=== PATIENT | female | born 1990 ===

== ENCOUNTER 2016-07-13 12:15 | Emergency (ER) | payer OTHER ==
[2016-07-13 12:34] VITALS: BMI 38.4
[2016-07-13 12:37] VITALS: TEMP 98.6; O2SAT 100
--- NOTE | 2016-07-13 12:45 | ED PDOC ---
Arrival/HPI - General Chief Complaint: ENT Problem Time Seen by Provider: 07/13/16 12:39 Historian: Patient - History of Present Illness Narrative History of Present Illness (Text): 07/13/16 12:41 25 y/o female, no significant pmh, nkda, c/o throat pain x 2 days. Pt. stated that she had throat pain 2 weeks ago, completed 10 day course of amoxicillin, started to have pain again yesterday, eating and drinking well, no painful swallowing, no coughing, no fever or chills, no dizziness, no numbness or tingling, no palpitation, no rash, no other medical or psychological complaints. Past Medical History - Provider Review Nursing Documentation Reviewed: Yes - Infectious Disease Hx of Infectious Diseases: None - Tetanus Immunization Tetanus Immunization: Unknown - Past Medical History Past Medical History: No Previous - Psychiatric Hx Psychophysiologic Disorder: No Hx Anxiety: No Hx Bipolar Disorder: No Hx Depression: No Hx Emotional Abuse: No Hx Hallucinations: No Hx Panic Disorder: No Hx Post Traumatic Stress Disorder: No Hx Psychosis: No Hx Physical Abuse: No Hx Schizophrenia: No Hx Sexual Abuse: No Hx Substance Use: No - Past Surgical History Past Surgical History: No Previous - Surgical History Hx Section: Yes - Anesthesia Hx Anesthesia: No Hx Anesthesia Reactions: No Hx Malignant Hyperthermia: No - Suicidal Assessment Feels Threatened In Home Enviroment: No Family/Social History - Physician Review Nursing Documentation Reviewed: Yes Family/Social History: Unknown Family HX Smoking Status: Never Smoked Hx Alcohol Use: No Hx Substance Use: No Hx Substance Use Treatment: No Allergies/Home Meds Allergies/Adverse Reactions: Allergies No Known Allergies Allergy (Verified 05/15/16 09:32) Review of Systems - Review of Systems Constitutional: absent: Fatigue, Fevers Eyes: absent: Vision Changes ENT: Sore Throat. absent: Hearing Changes Respiratory: absent: Cough, Sputum Cardiovascular: absent: Chest Pain, Orthopnea, Syncope Gastrointestinal: absent: Abdominal Pain, Nausea, Vomiting Skin: absent: Rash, Pruritis, Skin Lesions Neurological: absent: Headache, Dizziness Physical Exam Vital Signs Reviewed: Yes Vital Signs Temp Pulse Resp Pulse Ox 07/13/16 12:16 98.6 F 65 18 100 Temperature: Afebrile Pulse: Regular Respiratory Rate: Normal Appearance: Positive for: Well-Appearing, Non-Toxic, Comfortable Pain Distress: Mild Mental Status: Positive for: Alert and Oriented X 3 - Systems Exam Head: Present: Atraumatic, Normocephalic Pupils: Present: PERRL Extroacular Muscles: Present: EOMI Conjunctiva: Present: Normal Ears: Present: NORMAL TM, Normal Canal. No: Erythema Mouth: Present: Moist Mucous Membranes Pharnyx: No: ERYTHEMA, EXUDATE, TONSILS ENLARGED, Uvular Deviation, Muffled/ Hoarse Voice, Strider, Soft Palate/Uvular Edema Nose (External): Present: Atraumatic. No: Abrasion, Contusion, Laceration Nose (Internal): Present: Normal Inspection, No Active Bleeding. No: Rhinorrhea Neck: Present: Normal Range of Motion Respiratory/Chest: Present: Clear to Auscultation, Good Air Exchange. No: Respiratory Distress, Accessory Muscle Use Cardiovascular: Present: Regular Rate and Rhythm, Normal S1, S2. No: Murmurs Abdomen: Present: Normal Bowel Sounds. No: Tenderness, Distention, Peritoneal Signs Back: Present: Normal Inspection Upper Extremity: Present: Normal Inspection. No: Cyanosis, Edema Lower Extremity: Present: Normal Inspection. No: Edema Neurological: Present: GCS=15, Speech Normal, Motor Func Grossly Intact, Gait Normal, Memory Normal Skin: Present: Warm, Dry, Normal Color. No: Rashes Lymphatic: No: Cervical Adenopathy Psychiatric: Present: Alert, Oriented x 3, Normal Insight, Normal Concentration Medical Decision Making ED Course and Treatment: 07/13/16 12:45 -rapid strep and throat culture 07/13/16 14:03 -strept negative. -Throat culture sent. -Pt. has no pain in the ER now. -Discharge home with education on take tylenol at home as needed, salt water gargling, soft food diet, stay hydrated, follow up with your own pmd and ENT within 2 days, return to the ER for any new or worsening signs or symptoms. - Lab Interpretations Lab Results: Lab Results 07/13/16 12:41: Grp A Beta Strep Ag Negative I have reviewed the lab results: Yes Interpretation: No clinic. lab abnormalty - PA / ORE CRUSHER / Resident Statement /DO has reviewed & agrees with the documentation as recorded. Disposition/Present on Arrival - Present on Arrival Any Indicators Present on Arrival: No History of DVT/PE: No History of Uncontrolled Diabetes: No Urinary Catheter: No History of Decub. Ulcer: No History Surgical Site Infection Following: None - Disposition Have Diagnosis and Disposition been Completed?: Yes Diagnosis: Throat pain in adult Disposition: HOME/ ROUTINE Disposition Time: 12:46 Patient Plan: Discharge Condition: GOOD Additional Instructions: Discharge home with education on take tylenol at home as needed, salt water gargling, soft food diet, stay hydrated, follow up with your own pmd and ENT within 2 days, return to the ER for any new or worsening signs or symptoms. Referrals: Starr Meredith DO [Primary Care Provider] - Follow up with primary Bakari Recinos DO [Staff Provider] - Follow up with primary Forms: WORK NOTE
[2016-07-13 14:12] VITALS: BP 117/76; PULSE 61; RESP 16
== END 2016-07-13 14:11 | disposition home or self-care (01) ==
LOC: ED 12:15
DX: R07.0 Pain in throat (principal)

== ENCOUNTER 2016-11-05 11:30 | Emergency (ER) | payer OTHER ==
[2016-11-05 11:30] VITALS: BMI 38.4
[2016-11-05 12:02] VITALS: RESP 18; TEMP 99.1
--- NOTE | 2016-11-05 12:17 | ED PDOC ---
Arrival/HPI - General Chief Complaint: Headache Time Seen by Provider: 11/05/16 12:06 Historian: Patient - History of Present Illness Narrative History of Present Illness (Text): 11/05/16 12:06 Marty Bartholomew is a 25 year old female who presents to the emergency department complaining of a half day duration of a frontal headache accompanied by some nausea. Patient states that she has had headaches like this in the past and feels similar in quality to previous headaches. Patient notes that her headache was not sudden in onset. Patient denies any vomiting, photophobia, neck pain, back pain, or any other complaints at this time. Time/Duration: Other (12 hours) Symptom Onset: Gradual Symptom Course: Unchanged Activities at Onset: Rest Context: Home Past Medical History - Provider Review Nursing Documentation Reviewed: Yes - Infectious Disease Hx of Infectious Diseases: None - Tetanus Immunization Tetanus Immunization: Unknown - Reproductive Menopause: No - Past Medical History Past Medical History: No Previous - Psychiatric Hx Psychophysiologic Disorder: No Hx Anxiety: No Hx Bipolar Disorder: No Hx Depression: No Hx Emotional Abuse: No Hx Hallucinations: No Hx Panic Disorder: No Hx Post Traumatic Stress Disorder: No Hx Psychosis: No Hx Physical Abuse: No Hx Schizophrenia: No Hx Sexual Abuse: No Hx Substance Use: No - Past Surgical History Past Surgical History: No Previous - Surgical History Hx Section: Yes - Anesthesia Hx Anesthesia: No Hx Anesthesia Reactions: No Hx Malignant Hyperthermia: No - Suicidal Assessment Feels Threatened In Home Enviroment: No Family/Social History - Physician Review Nursing Documentation Reviewed: Yes Family/Social History: No Known Family HX Smoking Status: Never Smoked Hx Alcohol Use: No Hx Substance Use: No Hx Substance Use Treatment: No Allergies/Home Meds Allergies/Adverse Reactions: Allergies No Known Allergies Allergy (Verified 05/15/16 09:32) Physical Exam - Physical Exam Narrative Physical Exam (Text): - Review of Systems Constitutional: Normal. absent: Fatigue, Weight Change, Fevers Eyes: Normal ENT: Normal Respiratory: Normal absent: SOB, Cough, Sputum Cardiovascular: Normal absent: Chest pain, Palpitations, Syncope Gastrointestinal: Nausea. absent: Abdominal pain, Diarrhea, Vomiting Genitourinary: Normal. absent: Dysuria, Frequency, Hematuria Musculoskeletal: Normal. absent: Arthralgias, Back Pain, Neck Pain Skin: Normal Neurological: Frontal headache. absent: Focal Weakness Endocrine: Normal Hemo/Lymphatic: Normal Psychiatric: Normal - Physical exam Patient appears age appropriate, speaking full sentences without difficulty. - Systems Exam Head: Present: Atraumatic, Normocephalic Pupils: Present: PERRL Extraocular Muscles: Present: EOMI Conjunctiva: Present: Normal Mouth: Present: Moist Mucous Membranes Neck: Present: Normal Range of Motion. No: MIDLINE TENDERNESS, Paraspinal Tenderness Respiratory/Chest: Present: Clear to Auscultation, Good Air Exchange. No: Respiratory Distress, Accessory Muscle Use, Tachypnic Cardiovascular: Present: Regular Rate and Rhythm, Normal S1, S2, Peripheral Pulses Present. No: Murmurs Abdomen: Present: Normal Bowel Sounds, No: Tenderness, Peritoneal Signs, Rebound, Guarding, Distention Back: Present: Normal Inspection. No: Midline Tenderness, Paraspinal Tenderness Upper Extremity: Present: Normal Inspection. No: Cyanosis, Edema Lower Extremity: Present: Normal Inspection. No: Edema Neurological: Present: GCS=15, Speech Normal, cranial nerves II through XII fully intact with no cerebellar abnormality, neuro-sensory fully intact. No focal neurological deficits. Skin: Present: Warm, Dry, Normal Color. No: Rashes Lymphatic: Present: OX3, NI, NC Psychiatric: Present: Alert, Oriented x 3, Normal Insight, Normal Concentration Vital Signs Reviewed: Yes Vital Signs Temp Pulse Resp BP Pulse Ox 11/05/16 13:22 75 18 123/86 99 11/05/16 11:57 99.1 F 78 18 131/64 100 Temperature: Afebrile Blood Pressure: Normal Pulse: Regular Respiratory Rate: Normal Appearance: Positive for: Well-Appearing, Non-Toxic, Comfortable Pain Distress: None Mental Status: Positive for: Alert and Oriented X 3 Medical Decision Making ED Course and Treatment: 11/05/16 12:06 Impression: 25 year old female complaining of a half day duration of a frontal headache accompanied by some nausea. Plan: -- Tylenol, Toradol, and IV fluids -- Reassess and disposition Prior Visits: Notes and results from previous visits were reviewed. Patient last seen in the ED on 07/13/16 for throat pain for 2 days. Patient was discharged home. Progress Notes: 11/05/16 13:50 on reevaluation, pt states she feels much better and would like to be dc'd home no focal neurological deficits on reeval states she feels comfortable being dc'd home with outpatient f/u Pt states she understands to return to the ER right away for new or worsening symptoms or for inability to f/u with PMD or specialist as instructed. Patient states that she fully agrees with and understands discharge instructions. States that she agrees with the plan and disposition. Verbalized and repeated discharge instructions and plan. I have given the patient opportunity to ask any additional questions. - Medication Orders Current Medication Orders: Discontinued Medications Acetaminophen (Tylenol 325mg Tab) 975 mg PO STAT STA Stop: 11/05/16 12:19 Last Admin: 11/05/16 12:28 Dose: 975 mg Sodium Chloride (Sodium Chloride 0.9%) 1,000 mls @ 999 mls/hr IV .Q1H1M STA Stop: 11/05/16 13:18 Last Admin: 11/05/16 12:28 Dose: 999 mls/hr Ketorolac Tromethamine (Toradol) 15 mg IVP STAT STA Stop: 11/05/16 12:19 Last Admin: 11/05/16 12:28 Dose: 15 mg - Scribe Statement The provider has reviewed the documentation as recorded by the Sudhakar Cross Provider Scribe Attestation: All medical record entries made by the Sudhakar were at my direction and personally dictated by me. I have reviewed the chart and agree that the record accurately reflects my personal performance of the history, physical exam, medical decision making, and the department course for this patient. I have also personally directed, reviewed, and agree with the discharge instructions and disposition. Disposition/Present on Arrival - Present on Arrival Any Indicators Present on Arrival: No History of DVT/PE: No History of Uncontrolled Diabetes: No Urinary Catheter: No History of Decub. Ulcer: No History Surgical Site Infection Following: None - Disposition Have Diagnosis and Disposition been Completed?: Yes Diagnosis: Headache Disposition: HOME/ ROUTINE Disposition Time: 13:54 Patient Plan: Discharge Condition: GOOD Discharge Instructions (ExitCare): General Headache (ED) Additional Instructions: PLEASE RETURN TO THE EMERGENCY DEPARTMENT FOR NEW OR WORSENING SYMPTOMS. RETURN RIGHT AWAY IF YOU CANNOT FOLLOW UP WITH YOUR PRIMARY CARE DOCTOR, CLINIC, OR SPECIALIST IN 1-2 DAYS. Please take [id number] Motrin or Tylenol for pain Referrals: Starr Meredith DO [Primary Care Provider] - Follow up with primary Forms: [facility] ([place]ian), WORK NOTE
[2016-11-05] MEDS ORDERED: Sodium Chloride 0.9% 1,000 ML IV STA (12:18)
[2016-11-05 13:22] VITALS: BP 123/86; PULSE 75; O2SAT 99
== END 2016-11-05 14:02 | disposition home or self-care (01) ==
LOC: ED 11:30
DX: R51 Headache (principal)
CPT/HCPCS: 96361; 96374; 99285; J1885; J7040

== ENCOUNTER 2017-02-06 21:09 | Emergency (ER) | payer SELFPAY ==
[2017-02-06 21:10] VITALS: BMI 38.4
--- NOTE | 2017-02-06 21:44 | ED PDOC ---
Arrival/HPI <Chapo Cueva - Last Filed: 02/06/17 21:47> - General Historian: Patient - History of Present Illness Time/Duration: Other (2 weeks) Context: Home <Fareed Grant - Last Filed: 02/06/17 23:58> - General Chief Complaint: Female Genitourinary Time Seen by Provider: 02/06/17 21:41 - History of Present Illness Narrative History of Present Illness (Text): 02/06/17 21:41 This 26 yo female presents to this ED requesting a test. Patient stated she missed her last menstrual period x 2 weeks ago. Patient feels mild nauseous. Denies pelvic pain, abdominal pain, sob, cp, rectal bleeding, hematuria, urinary symptoms, dizziness, or abnormal gait. (Fareed Grant) Past Medical History - Provider Review Nursing Documentation Reviewed: Yes - Infectious Disease Hx of Infectious Diseases: None - Tetanus Immunization Tetanus Immunization: Unknown - Past Medical History Past Medical History: No Previous - Cardiac Hx Cardiac Disorders: No - Pulmonary Hx Respiratory Disorders: No - Neurological Hx Neurological Disorder: Yes Hx Migraine: Yes - HEENT Hx HEENT Disorder: No - Endocrine/Metabolic Hx Endocrine Disorders: No - Hematological/Oncological Hx Blood Disorders: No - Integumentary Hx Dermatological Disorder: No - Musculoskeletal/Rheumatological Hx Musculoskeletal Disorders: No - Gastrointestinal Hx Gastrointestinal Disorders: No - Genitourinary/Gynecological Hx Genitourinary Disorders: No - Psychiatric Hx Psychophysiologic Disorder: No Hx Substance Use: No - Past Surgical History Past Surgical History: No Previous - Surgical History Hx Section: Yes - Anesthesia Hx Anesthesia: No Hx Anesthesia Reactions: No Hx Malignant Hyperthermia: No - Suicidal Assessment Feels Threatened In Home Enviroment: No <Fareed Grant - Last Filed: 02/06/17 23:58> Family/Social History - Physician Review Nursing Documentation Reviewed: Yes Family/Social History: Other (noncontributory) Smoking Status: Never Smoked Hx Alcohol Use: No Hx Substance Use: No Hx Substance Use Treatment: No <Fareed Grant - Last Filed: 02/06/17 23:58> Allergies/Home Meds <Chapo Cueva - Last Filed: 02/06/17 21:47> <Fareed Grant - Last Filed: 02/06/17 23:58> Allergies/Adverse Reactions: Allergies No Known Allergies Allergy (Verified 02/06/17 21:14) Home Medications: Home Meds Medication Instructions Recorded Confirmed No Known Home Med 02/06/17 02/06/17 Review of Systems - Review of Systems Constitutional: Normal. absent: Fatigue, Weight Change, Fevers, Night Sweats Eyes: Normal ENT: Normal Respiratory: Normal. absent: SOB, Cough Cardiovascular: Normal. absent: Chest Pain, Palpitations Gastrointestinal: Nausea. absent: Abdominal Pain, Vomiting Genitourinary Female: Normal. absent: Dysuria, Frequency, Hematuria, Vaginal Bleeding, Vaginal Discharge Musculoskeletal: Normal Skin: Normal Neurological: Normal Endocrine: Normal Hemo/Lymphatic: Normal Psychiatric: Normal <Grant,Nahim P - Last Filed: 02/06/17 23:58> Physical Exam Temperature: Afebrile Blood Pressure: Normal Pulse: Regular Respiratory Rate: Normal Appearance: Positive for: Well-Appearing, Non-Toxic, Comfortable Pain Distress: None Mental Status: Positive for: Alert and Oriented X 3 - Systems Exam Head: Present: Atraumatic, Normocephalic Pupils: Present: PERRL Extroacular Muscles: Present: EOMI Conjunctiva: Present: Normal Mouth: Present: Moist Mucous Membranes Neck: Present: Normal Range of Motion Respiratory/Chest: Present: Clear to Auscultation, Good Air Exchange. No: Respiratory Distress, Accessory Muscle Use Cardiovascular: Present: Regular Rate and Rhythm, Normal S1, S2. No: Murmurs Abdomen: Present: Normal Bowel Sounds. No: Tenderness, Distention, Peritoneal Signs, Rebound, Guarding Back: Present: Normal Inspection Upper Extremity: Present: Normal Inspection, Normal ROM, NORMAL PULSES, Neurovascularly Intact, Capillary Refill < 2s. No: Cyanosis, Edema Lower Extremity: Present: Normal Inspection. No: Edema Neurological: Present: GCS=15, CN II-XII Intact, Speech Normal, Normal Sensory Function, Normal Cerebellar Funct, Gait Normal, Memory Normal Skin: Present: Warm, Dry, Normal Color. No: Rashes Psychiatric: Present: Alert, Oriented x 3, Normal Insight, Normal Concentration <Grant,Nahim P - Last Filed: 02/06/17 23:58> Vital Signs Temp Pulse Resp BP Pulse Ox 02/06/17 21:14 98.6 F 95 H 16 129/85 95 Medical Decision Making <HammadChapo - Last Filed: 02/06/17 21:47> Re-evaluation Time: 23:56 Reassessment Condition: Re-examined, Improved <Fareed Grant - Last Filed: 02/06/17 23:58> ED Course and Treatment: 02/06/17 23:56 Re-evaluation. Patient feels better. Discussed results and plan with patient who expresses understanding. All questions answered and there is agreement with the plan to discharge home with instructions. Patient stable for discharge. Return if symptoms persist or worsen. (Fareed Grant) - Lab Interpretations Lab Results: Lab Results 02/06/17 22:25: Urine Color Yellow, Urine Appearance Clear, Urine pH 6.0, Ur Specific [place] 1.025, Urine Protein Negative, Urine Glucose (UA) Negative, Urine Ketones Negative, Urine Blood Trace-intact H, Urine Nitrate Negative, Urine Bilirubin Negative, Urine Urobilinogen 0.2, Ur Leukocyte Esterase Negative , Urine RBC 1 - 3, Urine WBC 0 - 2, Ur Epithelial Cells 3 - 4, Urine Bacteria Few, Urine HCG, Qual Negative - PA / DYE MAKER / Resident Statement / has reviewed & agrees with the documentation as recorded. / has examined the patient and agrees with the treatment plan. <HammadChapo - Last Filed: 02/06/17 21:47> Disposition/Present on Arrival <HammadChapo - Last Filed: 02/06/17 21:47> - Present on Arrival Any Indicators Present on Arrival: No History of DVT/PE: No History of Uncontrolled Diabetes: No Urinary Catheter: No History of Decub. Ulcer: No History Surgical Site Infection Following: None - Disposition Have Diagnosis and Disposition been Completed?: Yes Disposition Time: 23:56 Patient Plan: Discharge <Fareed Grant - Last Filed: 02/06/17 23:58> - Disposition Diagnosis: Irregular menses Disposition: HOME/ ROUTINE Condition: GOOD Discharge Instructions (ExitCare): Dysmenorrhea (ED) Additional Instructions: Call private ERECTOR OPERATOR doctor for follow up visit in 1-2 days. Return to emergency if you develop any symptoms. Referrals: Starr Meredith DO [Primary Care Provider] - Follow up with primary [facility] [Outside] - Follow [facility] with [facility] [Outside] - Follow up with primary Forms: [facility] (Irish), WORK NOTE
[2017-02-06 22:42] LABS: URINE BILIRUBIN NEGATIVE (NEGATIVE); URINE BLOOD TRACE-INTACT (NEGATIVE); URINE GLUCOSE (UA) NEGATIVE (NEGATIVE); URINE KETONE NEGATIVE (NEGATIVE); URINE LEUKOCYTE ESTERASE NEGATIVE Leu/uL (NEGATIVE); URINE PROTEIN NEGATIVE mg/dL (<30 mg/dL); URINE UROBILINOGEN 0.2 E.U./dL (<1 E.U./dL)
[2017-02-06 22:48] LABS: URINE APPEARANCE CLEAR (CLEAR); URINE COLOR YELLOW (YELLOW)
[2017-02-06 23:05] LABS: URINE WBC 0 - 2 /hpf (0-6)
[2017-02-06 23:06] LABS: URINE BACTERIA FEW (NEG)
[2017-02-07] VITALS: BP 127/91; PULSE 92; RESP 18; TEMP 98.1; O2SAT 99
== END 2017-02-07 00:02 | disposition home or self-care (01) ==
LOC: ED 21:09
DX: N92.6 Irregular menstruation, unspecified (principal)

== ENCOUNTER 2017-08-17 21:28 | Emergency (ER) | payer SELFPAY ==
[2017-08-17 21:29] VITALS: BMI 38.4
--- NOTE | 2017-08-17 22:15 | ED PDOC ---
Arrival/HPI - General Time Seen by Provider: 08/17/17 21:31 Historian: Patient - History of Present Illness Narrative History of Present Illness (Text): 08/17/17 22:10 26 year old female, whose past medical history includes migraine headaches, presents to the emergency department complaining of headache discomfort associated with some nausea. Patient describes the discomfort as a throbbing sensation to the front of the head consistent with pervious migraine. Patient states she took Excedrin earlier with no relief. Patient denies any head trauma , any fever, chills, chest pain, shortness of breath, nausea, vomiting, diarrhea , urinary symptoms, back pain, neck pain, dizziness, or any other complaints. Symptom Onset: Gradual Symptom Course: Unchanged Activities at Onset: Light Context: Home Past Medical History - Provider Review Nursing Documentation Reviewed: Yes - Infectious Disease Hx of Infectious Diseases: None - Tetanus Immunization Tetanus Immunization: Unknown - Past Medical History Past Medical History: No Previous - Cardiac Hx Cardiac Disorders: No - Pulmonary Hx Respiratory Disorders: No - Neurological Hx Neurological Disorder: Yes Hx Migraine: Yes - HEENT Hx HEENT Disorder: No - Endocrine/Metabolic Hx Endocrine Disorders: No - Hematological/Oncological Hx Blood Disorders: No - Integumentary Hx Dermatological Disorder: No - Musculoskeletal/Rheumatological Hx Musculoskeletal Disorders: No - Gastrointestinal Hx Gastrointestinal Disorders: No - Genitourinary/Gynecological Hx Genitourinary Disorders: No - Psychiatric Hx Psychophysiologic Disorder: No Hx Substance Use: No - Past Surgical History Past Surgical History: No Previous - Surgical History Hx Section: Yes (1) - Anesthesia Hx Anesthesia: No Hx Anesthesia Reactions: No Hx Malignant Hyperthermia: No - Suicidal Assessment Feels Threatened In Home Enviroment: No Family/Social History - Physician Review Nursing Documentation Reviewed: Yes Family/Social History: No Known Family HX Smoking Status: Never Smoked Hx Alcohol Use: No Hx Substance Use: No Hx Substance Use Treatment: No Allergies/Home Meds Allergies/Adverse Reactions: Allergies No Known Allergies Allergy (Verified 02/06/17 21:14) Review of Systems - Physician Review All systems were reviewed & negative as marked: Yes - Review of Systems Constitutional: absent: Fevers, Other (Chills) Respiratory: absent: SOB Cardiovascular: absent: Chest Pain Gastrointestinal: Nausea. absent: Diarrhea, Vomiting Genitourinary Female: absent: Dysuria, Frequency, Hematuria Musculoskeletal: absent: Back Pain, Neck Pain Neurological: Headache. absent: Dizziness Physical Exam Vital Signs Reviewed: Yes Vital Signs Resp BP Pulse Ox 08/17/17 22:03 20 143/83 98 Temperature: Afebrile Blood Pressure: Normal Pulse: Regular Respiratory Rate: Normal Appearance: Positive for: Well-Appearing, Non-Toxic, Comfortable Pain Distress: None Mental Status: Positive for: Alert and Oriented X 3 - Systems Exam Head: Present: Atraumatic, Normocephalic Pupils: Present: PERRL Extroacular Muscles: Present: EOMI Conjunctiva: Present: Normal Mouth: Present: Moist Mucous Membranes Neck: Present: Normal Range of Motion Respiratory/Chest: Present: Clear to Auscultation, Good Air Exchange. No: Respiratory Distress, Accessory Muscle Use Cardiovascular: Present: Regular Rate and Rhythm, Normal S1, S2. No: Murmurs Abdomen: No: Tenderness, Distention, Peritoneal Signs Back: Present: Normal Inspection Upper Extremity: Present: Normal Inspection. No: Cyanosis, Edema Lower Extremity: Present: Normal Inspection. No: Edema Neurological: Present: GCS=15, CN II-XII Intact, Speech Normal Skin: Present: Warm, Dry, Normal Color. No: Rashes Psychiatric: Present: Alert, Oriented x 3, Normal Insight, Normal Concentration Medical Decision Making ED Course and Treatment: 08/17/17 22:11 Impression: 26 year old female presents complaining of migraine headache associated with nausea. Plan: -- Benadryl, Reglan, IV Fluids -- Reassess and disposition Prior Visits: Notes and results from previous visits were reviewed. Patient was last seen in the emergency department on 11/05/16 presents complaining of frontal headache for half the day. Patient was discharged. Progress Notes: 08/18/17 00:11 On re-evaluation, patient feels better and is in no acute distress. I have discussed the results and plan with the patient, who expresses understanding. Patient in agreement with plan to be discharged home. Patient is stable for discharge. Patient was instructed to follow up with physician or return if symptoms worsen or new concerning symptoms arise. - Medication Orders Current Medication Orders: Sodium Chloride (Sodium Chloride 0.9%) 1,000 mls @ 100 mls/hr IV .Q10H KATE Last Admin: 08/17/17 22:42 Dose: 100 mls/hr eMAR Start Stop Document 08/17/17 22:42 SS (Rec: 08/17/17 22:42 SS [id number]) Intravenous Solution Start Date 08/17/17 Start Time 22:42 Discontinued Medications Diphenhydramine HCl (Benadryl) 25 mg IVP ONCE ONE Stop: 08/17/17 22:19 Last Admin: 08/17/17 22:41 Dose: 25 mg IVP Administration Document 08/17/17 22:41 SS (Rec: 08/17/17 22:41 SS [id number]) Charges for Administration # of IVP Administrations 1 Metoclopramide HCl (Reglan) 10 mg IVP ONCE ONE Stop: 08/17/17 22:19 Last Admin: 08/17/17 22:41 Dose: 10 mg IVP Administration Document 08/17/17 22:41 SS (Rec: 08/17/17 22:42 SS [id number]) Charges for Administration # of IVP Administrations 1 - Scribe Statement The provider has reviewed the documentation as recorded by the Sudhakar John Provider Scribe Attestation: All medical record entries made by the Sudhakar were at my direction and personally dictated by me. I have reviewed the chart and agree that the record accurately reflects my personal performance of the history, physical exam, medical decision making, and the department course for this patient. I have also personally directed, reviewed, and agree with the discharge instructions and disposition. Disposition/Present on Arrival - Present on Arrival Any Indicators Present on Arrival: No History of DVT/PE: No History of Uncontrolled Diabetes: No Urinary Catheter: No History of Decub. Ulcer: No History Surgical Site Infection Following: None - Disposition Have Diagnosis and Disposition been Completed?: Yes Diagnosis: Migraine headache Disposition: HOME/ ROUTINE Disposition Time: 00:10 Patient Plan: Discharge Patient Problems: Current Active Problems Problem Status Onset Migraine headache Acute Condition: GOOD Discharge Instructions (ExitCare): Migraine Headache (DC) Additional Instructions: Rest/take meds as prescribed/follow up with your doctor this week Prescriptions: Acetaminophen/Butalbital/Caf [Fioricet] 1 tab PO Q6 PRN #16 tab PRN Reason: Headache
[2017-08-17] MEDS ORDERED: DiphenhydrAMINE 50 mg/ml Inj IVP ONE (22:18)
[2017-08-17] MEDS ORDERED: Sodium Chloride 0.9% 1,000 ML IV SCH (22:30)
[2017-08-18 00:22] VITALS: BP 138/80; PULSE 96; RESP 18; TEMP 98.8
[2017-08-18 00:24] VITALS: O2SAT 99
== END 2017-08-18 00:22 | disposition home or self-care (01) ==
LOC: ED 21:28
DX: G43.909 Migraine, unspecified, not intractable, without status migrainosus (principal)
CPT/HCPCS: 96374; 96375; 99285; J1200; J2765; J7040

== ENCOUNTER 2017-11-01 15:09 | Emergency (ER) | payer MEDICAID ==
[2017-11-01 15:44] VITALS: BMI 41.1
[2017-11-01] MEDS ORDERED: Sodium Chloride 0.9% 1,000 ML IV STA (16:02)
[2017-11-01] MEDS ORDERED: DiphenhydrAMINE 50 mg/ml Inj IVP STA (16:03)
--- NOTE | 2017-11-01 17:59 | ED PDOC ---
Arrival/HPI - General Chief Complaint: Headache Time Seen by Provider: 11/01/17 15:45 Historian: Patient - History of Present Illness Narrative History of Present Illness (Text): 11/01/17 17:52 26yo female with pmhx of Migraine headache who presents with complaint of severe frontal headache with associated nausea and photophobia since this morning. she reports history of similar quality and intensity of headache in the past. States she took Excedrin today without relieve. She otherwise denies neck pain, nuchal ridgity, fever, rash, focal weakness, slurred speech, any other complaint. Past Medical History - Provider Review Nursing Documentation Reviewed: Yes - Infectious Disease Hx of Infectious Diseases: None - Tetanus Immunization Tetanus Immunization: Unknown - Past Medical History Past Medical History: No Previous - Cardiac Hx Cardiac Disorders: No - Pulmonary Hx Respiratory Disorders: No - Neurological Hx Neurological Disorder: Yes Hx Migraine: Yes - HEENT Hx HEENT Disorder: No - Endocrine/Metabolic Hx Endocrine Disorders: No - Hematological/Oncological Hx Blood Disorders: No - Integumentary Hx Dermatological Disorder: No - Musculoskeletal/Rheumatological Hx Musculoskeletal Disorders: No - Gastrointestinal Hx Gastrointestinal Disorders: No - Genitourinary/Gynecological Hx Genitourinary Disorders: No - Psychiatric Hx Psychophysiologic Disorder: No Hx Substance Use: No - Past Surgical History Past Surgical History: No Previous - Surgical History Hx Section: Yes (1) - Anesthesia Hx Anesthesia: No Hx Anesthesia Reactions: No Hx Malignant Hyperthermia: No - Suicidal Assessment Feels Threatened In Home Enviroment: No Family/Social History - Physician Review Nursing Documentation Reviewed: Yes Family/Social History: Unknown Family HX Smoking Status: Never Smoked Hx Alcohol Use: No Hx Substance Use: No Hx Substance Use Treatment: No Allergies/Home Meds Allergies/Adverse Reactions: Allergies No Known Allergies Allergy (Verified 11/01/17 15:44) Home Medications: Home Meds Medication Instructions Recorded Confirmed Aspirin/Acetaminophen/Caffeine 1 each PO PRN PRN 11/01/17 11/01/17 [Excedrin Extra Strength Caplet] Review of Systems - Physician Review All systems were reviewed & negative as marked: Yes - Review of Systems Constitutional: Normal Eyes: Photophobia ENT: Normal Respiratory: Normal Cardiovascular: Normal Gastrointestinal: Nausea. absent: Abdominal Pain Genitourinary Female: Normal Musculoskeletal: Normal Skin: Normal Neurological: Headache Endocrine: Normal Hemo/Lymphatic: Normal Psychiatric: Normal Physical Exam Vital Signs Reviewed: Yes Vital Signs Temp Pulse Resp BP Pulse Ox 11/01/17 18:20 98.6 F 78 20 118/78 100 11/01/17 17:09 98.8 F 78 18 120/84 100 11/01/17 15:40 98.8 F 80 18 126/84 98 Temperature: Afebrile Blood Pressure: Normal Pulse: Regular Respiratory Rate: Normal Appearance: Positive for: Well-Appearing, Non-Toxic, Comfortable Pain Distress: None Mental Status: Positive for: Alert and Oriented X 3 - Systems Exam Head: Present: Atraumatic, Normocephalic Pupils: Present: PERRL Extroacular Muscles: Present: EOMI Conjunctiva: Present: Normal Mouth: Present: Moist Mucous Membranes Neck: Present: Normal Range of Motion Respiratory/Chest: Present: Clear to Auscultation, Good Air Exchange. No: Respiratory Distress, Accessory Muscle Use Cardiovascular: Present: Regular Rate and Rhythm, Normal S1, S2. No: Murmurs Abdomen: No: Tenderness, Distention, Peritoneal Signs Back: Present: Normal Inspection Upper Extremity: Present: Normal Inspection. No: Cyanosis, Edema Lower Extremity: Present: Normal Inspection. No: Edema Neurological: Present: GCS=15, CN II-XII Intact, Speech Normal, Motor Func Grossly Intact, Normal Sensory Function, Normal Cerebellar Funct, Norm Deep Tendon Reflexes, Gait Normal, Memory Normal, Normal 2Pt Descrimination, Other ( No focal neurological deficit]) Skin: Present: Warm, Dry, Normal Color. No: Rashes Psychiatric: Present: Alert, Oriented x 3, Normal Insight, Normal Concentration Medical Decision Making ED Course and Treatment: 11/02/17 01:01 PT presented for stated history. she was neurologically intact. Neck was supple. she had no meningeal signs. she was treated in ED with Tylenol, Reglan and Benadryl On r evaluation she noted that her headache resolved. she was DC home with Fioricet. Referred to her PMD. - Medication Orders Current Medication Orders: Discontinued Medications Acetaminophen (Tylenol 325mg Tab) 650 mg PO STAT STA Stop: 11/01/17 16:03 Last Admin: 11/01/17 16:49 Dose: 650 mg MAR Pain/Vitals Document 11/01/17 16:49 [place] (Rec: 11/01/17 16:50 [place] [id number]) Pain Reassessment Is This A Pain ReAssessment? No Sleep Is patient sleeping during reassessment? No Presence of Pain Presence of Pain Yes Pain Scale Used Pain Scale Used Numeric Location Pain Location Body Formstone Fitter Description Constant Intensity 8 Scale Used Numeric Pain Behavior Guarding Facial Grimacing Re-Assess: ROXANE Pain/Vitals Document 11/01/17 17:49 [place] (Rec: 11/01/17 23:26 [place] [id number]) Pain Reassessment Is This A Pain ReAssessment? Yes Sleep Is patient sleeping during reassessment? Yes Diphenhydramine HCl (Benadryl) 25 mg IVP STAT STA Stop: 11/01/17 16:04 Last Admin: 11/01/17 16:50 Dose: 25 mg IVP Administration Document 11/01/17 16:50 [place] (Rec: 11/01/17 16:50 [place] [id number]) Charges for Administration # of IVP Administrations 1 Sodium Chloride (Sodium Chloride 0.9%) 1,000 mls @ 999 mls/hr IV .Q1H1M STA Stop: 11/01/17 17:02 Last Admin: 11/01/17 16:51 Dose: 999 mls/hr eMAR Start Stop Document 11/01/17 16:51 [place] (Rec: 11/01/17 16:52 [place] [id number]) Intravenous Solution Start Date 11/01/17 Start Time 16:51 End Date 11/01/17 End time 17:52 Total Infusion Time 61 Metoclopramide HCl (Reglan) 10 mg IVP STAT STA Stop: 11/01/17 16:03 Last Admin: 11/01/17 16:49 Dose: 10 mg IVP Administration Document 11/01/17 16:49 [place] (Rec: 11/01/17 16:49 [place] [id number]) Charges for Administration # of IVP Administrations 1 Disposition/Present on Arrival - Present on Arrival Any Indicators Present on Arrival: No History of DVT/PE: No History of Uncontrolled Diabetes: No Urinary Catheter: No History of Decub. Ulcer: No History Surgical Site Infection Following: None - Disposition Have Diagnosis and Disposition been Completed?: Yes Diagnosis: Headache Disposition: HOME/ ROUTINE Disposition Time: 18:25 Patient Plan: Discharge Condition: IMPROVED Discharge Instructions (ExitCare): Headache, Adult Additional Instructions: Follow up with your Doctor/Neurologist Return to ED for any new or worsening symptoms Prescriptions: Acetaminophen/Butalbital/Caf [Fioricet] 1 tab PO Q4 #12 tab Referrals: Starr Meredith DO [Primary Care Provider] - Follow up with primary Forms: web care [employer] ([place]ian)
[2017-11-01 23:27] VITALS: PULSE 78; O2SAT 100
[2017-11-01 23:28] VITALS: BP 118/78; RESP 20; TEMP 98.6
== END 2017-11-01 18:20 | disposition home or self-care (01) ==
LOC: ED 15:09
DX: R51 Headache (principal)
CPT/HCPCS: 96361; 96374; 96375; 99285; J1200; J2765; J7030